=== PATIENT | female | born 1940 | race Caucasian/White ===

== ENCOUNTER 2020-08-21 15:49 | Emergency (ER) | payer OTHER ==
--- OUTSIDE RECORDS SUMMARY | 2020-08-21 15:52 | XMS REPORT | Continuity of Care Document ---
:[address] [facility] t Address 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 0-10 Me thodi s with s with 00:00: st radiculopa radiculopa 00 thy thy 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 [place] s of s of 0-10 [facility] lumbar lumbar 00:00: st region region 00 without without myelopathy myelopathy or or radiculopa radiculopa thy thy Abdominal Abdominal Problem Active [facility] [place] mass Mass 1-22 da 00:00: Medical 00 Group Epidermoid Epidermoid Problem Active 2018 [facility] cyst of Cyst of 1-08 da skin Skin 00:00: Medical 00 Group Spondylosi Spondylosi Disease Active 2017- [place] s of s of 3-01 [facility] cervical cervical 00:00: st region region 00 without without myelopathy myelopathy or or radiculopa radiculopa thy thy Abnormal Abnormal Disease Active [place] kidney kidney 05-21 [facility] function function 00:00: st 00 Shoulder Shoulder Disease Active [place] impingemen impingemen 05-21 Me thodi t t 00:00: st 00 Neck pain Neck pain Disease Active Overview: [place] 09-25 [place] [facility] 00:00: g of this 00 note might be different from the original. Neck pain, pain radiates to B shoulders , started 1mons ago after she fell, -N/T, saw Dr. Brice in [address] Brice recommend ed she start PT and Recommend a neurologi st for consultat ion b/c hx of multiple falls. Hypothyroi Hypothyroi Problem Active [facility] dism dism [facility] Type 2 Type 2 Problem Active [place] diabetes Diabetes da mellitus Mellitus Medica l Group Hyperlipid Hyperlipid Problem Active [facility] emia emia [facility] Essential Essential Problem Active [facility] hypertensi Hypertensi da on on [facility] Group Acute Acute Problem Active [place] sinusitis Sinusitis [facility] Allergic Allergic Problem Active [facility] [facility] rhinitis Rhinitis [facility] Decreased Decreased Problem Active [facility] renal Renal da function Function Medica l Group Osteoarthr Osteoarthr Problem Active [facility] itis itis [facility] Muscle Muscle Problem Active [place] weakness Weakness [facility] Muscle Muscle Problem Active [place] pain Pain [facility] Numbness Numbness Problem Active [place] [facility] of hand of Hand [facility] Dysuria Dysuria Problem Active [facility] Malodorous Malodorous Problem Active [facility] urine Urine [facility] Abrasion Abrasion Problem Active [facility] Allergies, Adverse Reactions, Alerts Allergy Allergy Status Severity Reaction(s) Onset Inactive Treating Comm ents Source Name Type Date Date Clinician Adhesive Propensi Active Rash [place] Tape-Ana ty to 1-10 [facility] icones adverse 00:00: st reaction 00 s to drug Codeine Propensi Active GI Pass out [place] ty to Intolerance, 4-02 Meth mike adverse Nausea And 00:00: st reaction Vomiting 00 s to drug Codeine Allergy Active [place] to da substanc Medical e Group Family History Family Member Diagnosis Comments Start Date Stop Date Source Natural father Heart disease [place] [facility] Natural mother Heart disease [facility] Natural mother Hypertension [facility] Natural mother Stroke [facility] Social History Social Habit Start Date Stop Date Quantity Comments Source Tobacco use and 2020-01-23 2020-01-23 Never used [facility] exposure 00:00:00 00:00:00 Alcohol intake 2020-01-23 2020-01-23 Current [facility] 00:00:00 00:00:00 non-drinker of alcohol (finding) Sex [birth year] [facility]i 00:00:00 00:00:00 Smoking Status Start Date Stop Date Source Never smoker [facility] Medications Ordered Filled Start Stop Current Ordering Indication Dosage Frequency Signature Comments Components Source Medication Medication Date Date Medication? Clinician (SIG) Name Name amlodipine- 2019-03 Yes 1{capsu QD Take 1 [place] benazepril 1-02 le} capsule by Met kwan (LOTREL) 14:38: mouth st 10-20 mg 21 daily. per capsule ipratropium 2019-03 Yes 2{spray Q.25D 2 sprays [facility] (ATROVENT) 03-24 } into each Meth mike 0.03 % 14:38: nostril 4 st nasal spray 21 (four) times a day. acyclovir 2019-03 Yes TAKE 1 [place] (ZOVIRAX) 0-01 TABLET(S) Metho di 800 MG 00:00: [address] tablet 00 DAY BY ORAL ROUTE FOR 10 DAYS. FENOFIBRATE 2020-0 Yes 135mg Take 135 [place] MICRONIZED 1-10 mg by [facility] ORAL 09:35: mouth. st 53 METOPROLOL 2020-0 Yes 100mg Take 100 [place] TARTRATE, 1-10 mg by [facility] BULK, MISC 09:35: mouth. 1 st 53 tab in AM and 1/2 tab at night. Total 150mg daily CLONIDINE 2020-0 Yes .1mg Take 0.1 [place] HCL, BULK, 1-10 mg by [facility] MISC 09:35: mouth. 1/2 st 53 tab in AM and 1 tab in PM ALOGLIPTIN 2020-0 Yes 30mg QD Take 30 mg [place] SANDRA/PIOGLI 1-10 by mouth Meth mike TAZONE 09:35: daily. st (OSENI 53 ORAL) pravastatin 2020-0 Yes 80mg QD Take 80 mg [place] (PRAVACHOL) 1-10 by mouth Meth mike 40 MG 09:35: daily. st tablet 53 amitriptyli 2020-0 Yes 50mg QD Take 50 mg [place] ne (ELAVIL) 1-10 by mouth Meth mike 25 MG 09:35: nightly. st tablet 53 zolpidem 2020-0 Yes 10mg QD Take 10 mg [place] (AMBIEN) 10 1-10 by mouth Meth mike mg tablet 09:35: nightly as st 53 needed for sleep. OXYCODONE 2020-0 Yes 10mg Q24H 10 mg [place] HCL 1-10 daily as [facility] (OXYCODONE, 09:35: needed. st BULK, MISC) 53 estradiol 2020-0 Yes 1mg QD Take 1 mg [place] (ESTRACE) 1 1-10 by mouth Meth mike MG tablet 09:35: daily. st 53 levothyroxi 2020-0 Yes 175ug QD Take 175 [place] ne 1-10 mcg by [facility] (SYNTHROID, 09:35: mouth st LEVOTHROID) 53 every 175 MCG morning. tablet alogliptin alogliptin No alogliptin [place] 25 25 25 da mg-pioglita mg-pioglita mg-pioglit Medical zone 30 mg zone 30 mg azone 30 Group tablet tablet mg tablet amlodipine amlodipine No amlodipine [place] 10 10 10 da mg-benazepr mg-benazepr mg-benazep Medical il 20 mg il 20 mg ril 20 mg Gr oup capsule capsule capsule TAKE ONE TAKE ONE TAKE ONE CAPSULE BY CAPSULE BY CAPSULE BY MOUTH EVERY MOUTH EVERY MOUTH DAY DAY EVERY DAY clonidine clonidine No clonidine [place] HCl 0.1 mg HCl 0.1 mg HCl 0.1 mg da tablet Take tablet Take tablet Medical 1/2 1/2 Take 1/2 Group tablet(s) 2 tablet(s) 2 tablet(s) TIMES A DAY TIMES A DAY 2 TIMES A by oral by oral DAY by route. route. oral route. Durezol Durezol No Durezol [place] [facility] 0.05 % eye 0.05 % eye 0.05 % eye da drops drops drops Medical Group estradiol 1 estradiol 1 No estradiol [place] mg tablet mg tablet 1 mg da TAKE 1 TAKE 1 tablet Medical TABLET(S) TABLET(S) TAKE 1 Agatha up EVERY DAY EVERY DAY TABLET(S) BY ORAL BY ORAL EVERY DAY ROUTE FOR ROUTE FOR BY ORAL 90 DAYS. 90 DAYS. ROUTE FOR 90 DAYS. fenofibrate fenofibrate No fenofibrat [place] micronized micronized e da 130 mg 130 mg micronized Medic al capsule capsule 130 mg Group Take 1 Take 1 capsule capsule(s) capsule(s) Take 1 every day every day capsule(s) by oral by oral every day route for route for by oral 90 days. 90 days. route for 90 days. fluticasone fluticasone No 1spray( BID fluticason [place] propionate propionate s) e da 50 50 propionate Medical mcg/actuati mcg/actuati 50 G roup on nasal on nasal mcg/actuat spray,suspe spray,suspe ion nasal nsion [place] nsion [place] spray,susp 1 spray 1 spray ension twice a day twice a day [place] 1 by by spray intranasal intranasal twice a route for route for day by 30 days. 30 days. intranasal route for 30 days. folic acid folic acid No folic acid [place] 1 mg tablet 1 mg tablet 1 mg d a Take 1 Take 1 tablet Medical tablet tablet Take 1 Group twice a day twice a day tablet by oral by oral twice a route for route for day by 30 days. 30 days. oral route for 30 days. metoprolol metoprolol No metoprolol [place] tartrate tartrate tartrate da 100 mg 100 mg 100 mg Medical tablet Take tablet Take tablet Group 1 tablet(s) 1 tablet(s) Take 1 twice a day twice a day tablet(s) by oral by oral twice a route for route for day by 90 days. 90 days. oral route for 90 days. neomycin-po neomycin-po No neomycin-p [place] lymyxin-hyd lymyxin-hyd olymyxin-h da rocort 3.5 rocort 3.5 ydrocort Medical mg-10,000 mg-10,000 3.5 Group unit/mL-1 % unit/mL-1 % mg-10,000 ear ear unit/mL-1 drops,susp drops,susp % ear drops,susp oxycodone oxycodone No oxycodone [place] 10 mg 10 mg 10 mg da tablet tablet tablet Medical Group pravastatin pravastatin No pravastati [place] 80 mg 80 mg n 80 mg da tablet TAKE tablet TAKE tablet Medical 1 TABLET BY 1 TABLET BY TAKE 1 Group MOUTH EVERY MOUTH EVERY TABLET BY DAY FOR 90 DAY FOR 90 MOUTH DAYS DAYS EVERY DAY FOR 90 DAYS Synthroid Synthroid No Synthroid [place] 175 mcg 175 mcg 175 mcg da tablet tablet tablet Medical Group Voltaren 1 Voltaren 1 No Voltaren 1 [place] % topical % topical % topical da gel USE ON gel USE ON gel USE ON Medical JOINT 4 GMS JOINT 4 GMS JOINT 4 Group FOUR TIMES FOUR TIMES GMS FOUR DAILY DAILY TIMES DAILY zolpidem 10 zolpidem 10 No zolpidem [place] mg tablet mg tablet 10 mg da TAKE 1 TAKE 1 tablet Medical TABLET BY TABLET BY TAKE 1 [place] up MOUTH AT MOUTH AT TABLET BY BEDTIME BEDTIME MOUTH AT BEDTIME Vital Signs Vital Name Observation Time Observation Value Comments Source BP Diastolic 2018-10-26 00:00:00 73 mm[facility]Hg[facility] Height 2018-10-26 00:00:00 66 [in_i] [facility] BMI (Body Mass 2018-10-26 00:00:00 35.1 kg/m2 [facility] Medical Index) Group BP Systolic 2018-10-26 00:00:00 114 mm[Hg] [facility] Body Weight 2018-10-26 00:00:00 217.2 [lb_av] [facility] Body height 2020-01-23 14:38:00 167.6 cm [facility] Body weight 2020-01-23 14:38:00 97.07 kg [facility] BMI 2020-01-23 14:38:00 34.54 kg/m2 [facility] Procedures Procedure Date / Time Performing Clinician Source Performed XR UPPER EXTREMITY 2020-01-05 17:32:29 Aurora Rudolph EXTERNAL STUDY XR LOWER EXTREMITY 2020-01-05 17:32:05 Aurora Rudolph EXTERNAL STUDY TYMPANOMETRY 2018-10-26 00:00:00 [facility] An[facility] Shoulder 2008-03-23 00:00:00 [facility] Back Surgery 1977-03-23 00:00:00 [facility] Hysterectomy 1973-03-23 00:00:00 [facility] Cataract [facility]lect[facility] Cholecyst[facility] Plan of Care Planned Activity Planned Date Details Comments Source Future Scheduled Test 2020-10-21 INFLUENZA VACCINE [facility] 00:00:00 [code = INFLUENZA VACCINE] Future Scheduled Test 1992 SHINGLES VACCINES [facility] 00:00:00 (#1) [code = SHINGLES VACCINES (#1)] Future Scheduled Test 1960 Hepatitis C screening [facility] 00:00:00 (procedure) [code = 677880057] Future Scheduled Test 1954 COVID-19 VACCINE (1) [facility] 00:00:00 [code = COVID-19 VACCINE (1)] Future Scheduled Test 1952 DIABETES: RETINAL EYE [facility] 00:00:00 EXAM [code = DIABETES: RETINAL EYE EXAM] Future Scheduled Test 1952 DIABETIC FOOT EXAM [facility] 00:00:00 [code = DIABETIC FOOT EXAM] Future Scheduled Test 1948 65+ PNEUMOCOCCAL [facility] 00:00:00 VACCINE (1 of 4 - PCV13) [code = 65+ PNEUMOCOCCAL VACCINE (1 of 4 - PCV13)] Instructions [facility] Encounters Start End Encounter Admission Attending Care Care Encounter Source Date/Time Date/Time Type Type Clinicians Facility Department ID 2020-04-26 2020-04-26 Outpatient Marisa Kay [facility] [id number] 00:00:00 00:00:00 [place] [id number] 2020-04-12 2020-04-12 Outpatient Marisa Kay [facility] [id number] 00:00:00 00:00:00 [place] [id number] 2020-01-23 2020-01-23 Outpatient [facility] [id number] 296 [place] 00:00:00 00:00:00 [place] [id number] 2020-01-23 2020-01-23 Outpatient [facility] [id number] 784 [place] 00:00:00 00:00:00 [facility] [id number] 2020-01-23 2020-01-23 [facility] [id number] 784 [place] 00:00:00 00:00:00 [facility] [id number] 2018-10-26 2018-10-26 [facility] [place] - [id number] [place] 00:00:00 00:00:00 MD Amarilis: [address] - [address], [facility] [id number] , Ph. Results Test Description Test Time Test Comments Results Result [facility] e Comments XR Upper 2020-01-23 This exam was not [place] Extremity 17:32:40 acquired at a [facility] External Study Synagogue facility and has not been interpreted by a [facility] Provider. The exam was imported into our imaging system. XR Lower 2020-01-23 This exam was not [place] Extremity 17:32:20 acquired at a [facility] External Study Synagogue facility and has not been interpreted by a [facility] Provider. The exam was imported into our imaging system. tympanogram 2018-10-26 14:25:07 Test Item Value Reference Range Interpretation Comme nts Right (test code = Right) Type A Normal Left (test code = Left) Type A Normal [facility]
[2020-08-21 17:08] LABS: Potassium 4.1 mmol/L (3.5-5.1)
--- NOTE | 2020-08-21 17:14 | RAD REPORT ---
EXAM DESCRIPTION: CT - Head C Spine Cap Wo Con - 08/21/2020 4:46 pm CLINICAL HISTORY: PAIN, fall COMPARISON: No comparisons TECHNIQUE: Axial [address] head images were obtained. Axial [address] cervical spine images were obtain ed with sagittal and coronal reconstruction images reviewed. Axial 5 mm images of the chest, abdomen and pelvis were obtained without IV contrast. Sagittal and coronal reconstruction of the chest, abdo men and pelvis performed. All CT scans are performed using dose optimization technique as appropriate and may include automated exposure control or mA/KV adjustment according to patient size. FINDINGS: No intracranial hemorrhage, mass or edema. No midline shift or abnormal fluid collection. Mild atrophy and chronic ischemic changes are present with ventricles in proportion to volume loss. M astoid air cells and paranasal sinuses are clear. No skull fracture. CT cervical spine shows normal height and alignment. No fracture or acute finding. Disc space narrowi ng present at C5-6 and C6-7 endplate spurring and prominent facet joint degenerative changes are pres ent throughout the cervical spine. Foraminal stenosis present on the left at C4-5 with mild bilateral foraminal stenosis C5-6 and C6-7. Central spinal stenosis changes are evident at C4-5, C5-6 and C6-7 . No suspicious soft tissue finding. Central canal detail is inherently limited. CT chest shows no pneumothorax, pulmonary contusion or pleural fluid collection. No mediastinal hemat susana and the aorta and pulmonary arteries are unremarkable for non contrast study. No chest will mass or abnormal axillary finding. No displaced rib fracture or other significant bony finding. CT abdomen and pelvis show no injury to the solid abdominal viscera. Gallbladder is absent. Right kid ben is incompletely rotated. There are 2 exophytic cysts along the lateral margin, largest is 4.2 cm. Diverticulosis is present without diverticulitis. No acute GI process. No bowel injury or significan t finding. No free air, free fluid or abnormal stranding. No urinary bladder abnormality. Thoracic spine degenerative changes are present without an acute compression fracture. Concavity to t he superior endplates L1-L3 is present with posterior wall height preserved. These are suspected to b e chronic changes. IMPRESSION: No significant CT Head finding. No significant CT cervical spine finding. Prominent degenerative changes are as detailed. No significant CT Chest finding. No significant CT Abdomen and Pelvis finding. Concave contour to the L1-L3 vertebral bodies believed to be chronic.
[2020-08-21 17:28] LABS: Absolute Lymphocytes (CBC) 2.3 K/uL (0.7-4.9); Basophils % 0.7 % (0-1.3); Hematocrit 38.1 % (36.0-45.0); Lymphocytes % 28.4 % (15.3-44.8); MPV 7.7 fL (7.6-11.3)
--- NOTE | 2020-08-21 17:28 | EDPHYS ---
Physician Documentation [facility] Name: Melania Suggs Age: 80 yrs Sex: Female : 1940 Arrival Date: 08/21/2020 Time: 15:56 Bed 7 Private MD: ED Physician John Alexandre HPI: 08/21 16:18 This 80 yrs old Female presents to ER via Unassigned with complaints of Fall yancy Injury. 16:18 Details of fall: The patient fell from seated position, out of a chair. Onset: The yancy symptoms/episode began/occurred just prior to arrival. Associated injuries: The patient sustained injury to the head, neck injury, upper back injury, injury to the low back. Severity of symptoms: At their worst the symptoms were mild, moderate, in the emergency department the symptoms are unchanged. The patient has not experienced similar symptoms in the past. Historical: - Allergies: 17:21 Codeine; kg - PMHx: 17:21 Diabetes - NIDDM; Hypertension; kg - Immunization history:: Adult Immunizations up to date, Client reports receiving the 2nd dose of the Covid vaccine. - Immunization history: Last tetanus immunization: - up to date. - Family history:: not pertinent. - Social history:: Smoking status: Patient denies any tobacco usage or history of. ROS: 16:18 Constitutional: Negative for fever, chills, and weight loss, Eyes: Negative for injury, yancy pain, redness, and discharge, ENT: Negative for injury, pain, and discharge, Cardiovascular: Negative for chest pain, palpitations, and edema, Respiratory: Negative for shortness of breath, cough, wheezing, and pleuritic chest pain, Abdomen/GI: Negative for abdominal pain, nausea, vomiting, diarrhea, and constipation, Back: Negative for injury and pain, : Negative for injury, bleeding, discharge, and swelling, Skin: Negative for injury, rash, and discoloration, Neuro: Negative for headache, weakness, numbness, tingling, and seizure, Psych: Negative for depression, anxiety, suicide ideation, homicidal ideation, and hallucinations, Allergy/Immunology: Negative for hives, rash, and allergies, Endocrine: Negative for neck swelling, polydipsia, polyuria, polyphagia, and marked weight changes, Hematologic/Lymphatic: Negative for swollen nodes, abnormal bleeding, and unusual bruising. 16:18 Neck: Positive for pain with movement, pain at rest. 16:18 Back: Positive for decreased range of motion, pain at rest, pain with movement. Exam: 16:18 Constitutional: This is a well developed, well nourished patient who is awake, alert, yancy and in no acute distress. Head/Face: Normocephalic, atraumatic. Eyes: Pupils equal round and reactive to light, extra-ocular motions intact. Lids and lashes normal. Conjunctiva and sclera are non-icteric and not injected. Cornea within normal limits. Periorbital areas with no swelling, redness, or edema. ENT: Nares patent. No nasal discharge, no septal abnormalities noted. Tympanic membranes are normal and external auditory canals are clear. Oropharynx with no redness, swelling, or masses, exudates, or evidence of obstruction, uvula midline. Mucous membranes moist. Chest/axilla: Normal chest wall appearance and motion. Nontender with no deformity. No lesions are appreciated. Cardiovascular: Regular rate and rhythm with a normal S1 and S2. No gallops, murmurs, or rubs. Normal PMI, no JVD. No pulse deficits. Respiratory: Lungs have equal breath sounds bilaterally, clear to auscultation and percussion. No rales, rhonchi or wheezes noted. No increased work of breathing, no retractions or nasal flaring. Abdomen/GI: Soft, non-tender, with normal bowel sounds. No distension or tympany. No guarding or rebound. No evidence of tenderness throughout. Female : Normal external genitalia. Skin: Warm, dry with normal turgor. Normal color with no rashes, no lesions, and no evidence of cellulitis. MS/ Extremity: Pulses equal, no cyanosis. Neurovascular intact. Full, normal range of motion. Neuro: Awake and alert, GCS 15, oriented to person, place, time, and situation. Cranial nerves II-XII grossly intact. Motor strength 5/5 in all extremities. Sensory grossly intact. Cerebellar exam normal. Normal gait. Psych: Awake, alert, with orientation to person, place and time. Behavior, mood, and affect are within normal limits. 16:18 Neck: External neck: is normal, no acute changes, ROM/movement: is normal, no acute changes, limited range of motion, that is mild. Vital Signs: 16:19 BP 149 / 81; Pulse 79; Resp 20 S; Temp 97.9(O); Pulse Ox 94% ; kg 16:45 BP 115 / 52; Pulse 49; Resp 20; Pulse Ox 98% on R/A; kg 17:00 BP 136 / 57; Pulse 56; Resp 20; Pulse Ox 97% ; kg Yesy Coma Score: 16:20 Eye Response: spontaneous(4). Verbal Response: oriented(5). Motor Response: obeys yancy commands(6). Total: 15. 17:20 Eye Response: spontaneous(4). Verbal Response: oriented(5). Motor Response: obeys kg commands(6). Total: 15. Trauma Score (Adult): 17:20 Eye Response: spontaneous(1); Verbal Response: oriented(1); Motor Response: obeys kg commands(2); Systolic BP: > 89 mm Hg(4); Respiratory Rate: 10 to 29 per min(4); Quincy Score: 15; Trauma Score: 12 MDM: 16:10 Patient medically screened. yancy 16:20 Differential diagnosis: Intracranial bleed- Concussion cerebral contusion, arthritis, yancy C-Spine Fracture Cervical Disc Herniation Cervical Raiculopathy Cervical Spondylosis cervical strain. Differential diagnosis: abrasion, closed head injury, contusion, fracture, multiple trauma, sprain, strain. Data reviewed: vital signs, nurses notes, lab test result(s), radiologic studies, CT scan. Data interpreted: classroom monitor: rate is 78 beats/min, rhythm is regular, Pulse oximetry: on room air is 99 %. Test interpretation: by ED physician or midlevel provider: plain radiologic studies. Counseling: I had a detailed discussion with the patient and/or guardian regarding: the historical points, exam findings, and any diagnostic results supporting the discharge/admit diagnosis, lab results, radiology results. 08/21 16:18 Order name: Basic Metabolic Panel; Complete Time: 17:26 [facility] 08/21 16:18 Order name: CBC with Diff [facility] 08/21 16:18 Order name: CT Traumagram (Head C Spine CAP wo con); Complete Time: 17:26 [facility] 08/21 16:18 Order name: Type And Screen [facility] 08/21 16:18 Order name: Labs collected and sent; Complete Time: 17:32 [facility] 06/01 16:18 Order name: Urine Dipstick-Ancillary (obtain specimen) yancy Administered Medications: 17:31 Drug: NS 0.9% 500 ml Route: IV; Rate: bolus; Site: right antecubital; kg 18:00 Follow up: Response: No adverse reaction; Marked relief of symptoms; IV Status: kg Completed infusion; IV Intake: 500ml Disposition: 08/21/20 17:28 Discharged to Home. Impression: Fall (on)(from) sidewalk curb, Superficial injury of head, Low back pain, Strain of muscle, fascia and tendon at neck level, Contusion of back wall of thorax, Obesity, unspecified, Unspecified kidney failure - insufficency. - Condition is Stable. - Discharge Instructions: Back Pain, Adult, Musculoskeletal Pain, Obesity, Adult, Back Injury Prevention, [id number], Cervical Sprain, Sykw-hn-Ilnb, Back Pain, Adult, Endw-be-Tpds, Head Injury, Adult, [id number], Chronic Kidney Disease, Adult, Weun-ej-Xlvk. - Prescriptions for Tylenol 325 mg Oral Tablet - take 2 tablet by ORAL route every 6 hours as needed; 1 bottle. - Medication Reconciliation Form, Thank You Letter, Antibiotic Education, Prescription Opioid Use form. - Follow up: Private Physician; When: 2 - 3 days; Reason: Recheck today's complaints, Continuance of care, Re-evaluation by your physician. - Problem is new. - Symptoms have improved. Signatures: Dispatcher [employer] EDMS John Alexandre MD MD cha Graham, Kristen kg Corrections: (The following items were deleted from the chart) 18:16 17:28 08/21/2020 17:28 Discharged to Home. Impression: Fall (on)(from) sidewalk curb; kg Superficial injury of head; Low back pain; Strain of muscle, fascia and tendon at neck level; Contusion of back wall of thorax; Obesity, unspecified; Unspecified kidney failure - insufficency. Condition is Stable. Discharge Instructions: Back Pain, Adult, Musculoskeletal Pain, Back Injury Prevention, Nwes-ie-Bkoq, Cervical Sprain, Stkr-ca-Irpp, Back Pain, Adult, Glid-rj-Gifr, Head Injury, Adult, Izcv-kl-[id number]. Prescriptions for Tylenol 325 mg Oral Tablet - take 2 tablet by ORAL route every 6 hours as needed; 1 bottle. and Forms are Medication Reconciliation Form, Thank You Letter, Antibiotic Education, Prescription Opioid Use. Follow up: Private Physician; When: 2 - 3 days; Reason: Recheck today's complaints, Continuance of care, Re-evaluation by your physician. Problem is new. Symptoms have improved. yancy
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
[2020-08-21] MEDS ORDERED: NA CHLORIDE 0.9% 500 ML ONE (17:45)
[2020-08-21 18:22] VITALS: TEMP 97.9
[2020-08-21 18:25] VITALS: BP 136/57; O2SAT 97
== END 2020-08-21 18:16 | disposition home or self-care (01) ==
LOC: ER 15:49
DX: S00.90XA Unspecified superficial injury of unspecified part of head, initial encounter (principal); M54.5 Low back pain; S16.1XXA Strain of muscle, fascia and tendon at neck level, initial encounter; S20.229A Contusion of unspecified back wall of thorax, initial encounter; E66.9 Obesity, unspecified; W10.1XXA Fall (on)(from) sidewalk curb, initial encounter; N19 Unspecified kidney failure; E11.9 Type 2 diabetes mellitus without complications; I10 Essential (primary) hypertension
CPT/HCPCS: 85025; 80048; 36415; 86900; 86850; 86901; 70450; 71250; 72125; 99283; J7040